=== PATIENT | female | born 1945 | race Caucasian/White ===

== ENCOUNTER 2016-11-25 15:37 | Inpatient (IN) | payer OTHER ==
[~2016-11-25] VITALS: Ht 154.9 cm; Wt 98.4 kg
[~2016-11-25 15:37] MED LIST: ADULT LOW DOSE81 MG PO; COREG 25MG TAB25 MG PO; HYDRALAZINE HCL50 MG PO; LASIX40 MG PO; NORCO 7.5-3251 EACH PO; NORVASC 5 MG TAB5 MG PO; PHENERGAN 12.12.5 M1 PO; PRILOSEC OTC20 MG PO; TRESIBA SQ; TRULICITY0.75 MG/0. SQ; VESICARE10 MG PO; VITAMIN B-121000 MCG PO; VITAMIN B-6100 MG PO; ZESTRIL5 MG PO; ZOCOR20 MG PO
[2016-11-25 18:09] LABS: RED BLOOD COUNT 3.69 M/UL (4.00-5.10); WHITE BLOOD COUNT 10.1 K/UL (4.5-11.0)
[2016-11-25 18:16] LABS: HEMOGLOBIN 11.2 gm/dl (12.3-15.3)
[2016-11-27 06:15] LABS: HEMOGLOBIN 9.9 gm/dl (12.3-15.3); RED BLOOD COUNT 3.31 M/UL (4.00-5.10); WHITE BLOOD COUNT 8.5 K/UL (4.5-11.0)
[2016-12-01 06:34] LABS: HEMOGLOBIN 10.8 gm/dl (12.3-15.3); RED BLOOD COUNT 3.63 M/UL (4.00-5.10); WHITE BLOOD COUNT 8.2 K/UL (4.5-11.0)
[2016-12-04 04:54] LABS: HEMOGLOBIN 10.8 gm/dl (12.3-15.3); RED BLOOD COUNT 3.6 M/UL (4.00-5.10)
[2016-12-04 05:02] LABS: WHITE BLOOD COUNT 10.8 K/UL (4.5-11.0)
== END 2016-12-04 14:45 | DRG 73 ==
LOC: ER1 15:37 → ZEROF 23:24 → M/S 23:24
PROVIDERS: Emergency Medicine; Internal Medicine; Internal Medicine Infectious Disease; ADMIT Internal Medicine
DX: E11.43 Type 2 diabetes mellitus with diabetic autonomic (poly)neuropathy (principal); I50.33 Acute on chronic diastolic (congestive) heart failure; J96.01 Acute respiratory failure with hypoxia; N17.9 Acute kidney failure, unspecified; I13.0 Hypertensive heart and chronic kidney disease with heart failure and stage 1 through stage 4 chronic kidney disease, or unspecified chronic kidney disease; Z68.41 Body mass index [BMI] 40.0-44.9, adult; N18.3 Chronic kidney disease, stage 3 (moderate); J20.9 Acute bronchitis, unspecified; I16.0 Hypertensive urgency; R11.2 Nausea with vomiting, unspecified; R05 Cough; Z88.2 Allergy status to sulfonamides; Z88.1 Allergy status to other antibiotic agents; Z79.899 Other long term (current) drug therapy; E66.01 Morbid (severe) obesity due to excess calories; Z51.89 Encounter for other specified aftercare; Z79.4 Long term (current) use of insulin
CPT/HCPCS: 36415; 36600; 71010; 78264; 80048; 80053; 82550; 82553; 82803; 82962; 83036; 83605; 83690; 83874; 84443; 84484; 85025; 85027; 93005; 94640; 94660; 94664; 96361; 96374; 96375; 96376; 97110; 97116; 97535; 99285; A9541; C9113; G0378; J0360; J1650; J1885; J1940; J2405; J2550; J7030; J7509; Q0162